=== PATIENT | female | born 1945 | race Caucasian/White ===

== ENCOUNTER 2019-08-13 07:24 | Emergency (ER) | payer MEDICARE, MEDICAID ==
[~2019-08-13] VITALS: Ht 154.9 cm; Wt 64.0 kg
[2019-08-13] MEDS ORDERED: LORAZEPAM 2MG/ML CPJ IM ONE (08:15)
[2019-08-13] MEDS ORDERED: ACETAMINOPHEN 500MG TABLET PO ONE (08:15)
[2019-08-13 10:55] VITALS: BP 129/52
== END 2019-08-13 13:24 | disposition home or self-care (01) ==
LOC: ER 07:52
DX: S42.291A Other displaced fracture of upper end of right humerus, initial encounter for closed fracture (principal); I10 Essential (primary) hypertension; E78.00 Pure hypercholesterolemia, unspecified; J44.9 Chronic obstructive pulmonary disease, unspecified; F03.90 Unspecified dementia, unspecified severity, without behavioral disturbance, psychotic disturbance, mood disturbance, and anxiety; K21.9 Gastro-esophageal reflux disease without esophagitis; N28.9 Disorder of kidney and ureter, unspecified; W06.XXXA Fall from bed, initial encounter; Y93.89 Activity, other specified; Y92.122 Bedroom in nursing home as the place of occurrence of the external cause
CPT/HCPCS: 70450; 72125; 72170; 73030; 73560; 73590; 96372; 99285; J2060

== ENCOUNTER 2021-12-10 16:57 | Emergency (ER) | payer MEDICARE, MEDICAID ==
[~2021-12-10] VITALS: Ht 162.6 cm; Wt 59.0 kg
[2021-12-10] MEDS ORDERED: TETANUS, DIPHTHERIA, PERTUSSIS VAC/PF 0.5ML (>10YR OLD) IM ONE (19:00)
[2021-12-10] MEDS ORDERED: SODIUM CHLORIDE 0.9% 1,000 ML IV ONE (20:00)
[2021-12-10] MEDS ORDERED: MIDAZOLAM HCL 2 MG/2 ML VIAL IV ONE ×2 (20:00)
[2021-12-10] MEDS ORDERED: LIDOCAINE HCL/EPINEPHRINE 1%-EPI 1:100,000 20 ML VIAL INFIL ONE (20:00)
[2021-12-10] MEDS ORDERED: KETOROLAC 15MG/ML VIAL IV ONE (20:00)
[2021-12-10 20:53] LABS: BASOPHILS % 0.9 % (0.0-2.0); EOSINOPHILS % 0.2 % (0.0-5.0); HEMOGLOBIN. 12.7 g/dL (12.0-16.0); LYMPHOCYTES % 9.2 % (20.0-50.0); MEAN CORPUSCULAR HEMOGLOBIN 32.9 pg (28.0-32.0); MEAN CORPUSCULAR VOLUME 101.1 fL (81.0-99.0); MEAN PLATELET VOLUME 9.7 fl (7.4-10.4); MONOCYTES % 5.5 % (2.0-8.0); NEUTROPHILS % 84.2 % (40.0-76.0); PLATELET 332 x1000/uL (130-400); RED BLOOD CELL COUNT 3.85 mill/uL (4.2-5.4); RED CELL DISTRIBUTION WIDTH 15.9 % (11.6-14.6)
[2021-12-10 20:59] LABS: CHLORIDE 111 mEq/L (98-107)
[2021-12-10 21:03] LABS: PROTHROMBIN TIME 10.6 sec (9.6-11.0)
[2021-12-10] MEDS ORDERED: KETOROLAC 15MG/ML VIAL IV NR (22:00)
[2021-12-10] MEDS ORDERED: LIDOCAINE HCL/EPINEPHRINE 1%-EPI 1:100,000 20 ML VIAL INFIL NR (22:00)
[2021-12-10] MEDS ORDERED: TOPUD MT (22:50)
[2021-12-11 02:30] VITALS: BP 116/78
== END 2021-12-11 02:34 ==
LOC: ER 16:57
DX: S01.81XA Laceration without foreign body of other part of head, initial encounter (principal); W07.XXXA Fall from chair, initial encounter; Y93.89 Activity, other specified; Y92.89 Other specified places as the place of occurrence of the external cause; Y99.8 Other external cause status; J44.9 Chronic obstructive pulmonary disease, unspecified; D64.9 Anemia, unspecified; F03.90 Unspecified dementia, unspecified severity, without behavioral disturbance, psychotic disturbance, mood disturbance, and anxiety; K21.9 Gastro-esophageal reflux disease without esophagitis; E78.00 Pure hypercholesterolemia, unspecified; I10 Essential (primary) hypertension
CPT/HCPCS: 36415; 70450; 73130; 80053; 85025; 85610; 93005; 96361; 96374; 99285; J2250; J3490; J7030